=== PATIENT | female | born 1980 | race Two or more races ===

== ENCOUNTER 2020-11-27 07:10 | Day surgery (SDC) | payer OTHER | END 2020-11-27 13:05 | disposition home or self-care (01) | LOC: AMB-ENDOS 07:10 | PROVIDERS: ATTEND Colon & Rectal Surgery | DX: K57.32 Diverticulitis of large intestine without perforation or abscess without bleeding (principal); K64.3 Fourth degree hemorrhoids; Z20.822 Contact with and (suspected) exposure to COVID-19 ==